=== PATIENT | male | born 1965 | race Caucasian/White ===

== ENCOUNTER 2021-07-23 18:10 | Emergency (ER) | payer OTHER ==
[~2021-07-23] VITALS: Ht 177.8 cm; Wt 106.6 kg
[~2021-07-23 18:10] MED LIST: DIAZ5 PO; OXYACE5T PO
[2021-07-23] MEDS ORDERED: Prednisone20 MG PO (21:01)
[2021-07-23] MEDS ORDERED: KETO10 PO (21:01)
== END 2021-07-23 21:11 | disposition home or self-care (01) ==
LOC: ER 18:10
DX: M51.36 Other intervertebral disc degeneration, lumbar region (principal); G62.9 Polyneuropathy, unspecified; Z79.899 Other long term (current) drug therapy
CPT/HCPCS: 74176; 96372; 99283-25; A9270; J1885; J7512

== ENCOUNTER 2022-10-20 21:33 | Emergency (ER) | payer OTHER ==
[~2022-10-20] VITALS: Ht 177.8 cm; Wt 102.1 kg
[~2022-10-20 21:33] MED LIST changes: +KETO10 PO; +Prednisone20 MG PO
[2022-10-21 00:30] LABS: Source, Urine Clean Catch
[2022-10-21 00:42] LABS: BASOPHILS ABSOLUTE AUTO 0.02 K/mm3 (0.00-0.23); BASOPHILS PERCENT AUTO 0 % (0-2); EOSINOPHILS ABSOLUTE AUTO 0.04 K/mm3 (0.00-0.68); EOSINOPHILS PERCENT AUTO 0 % (0-6); Hematocrit 44.2 % (37.0-53.0); Hemoglobin 15.4 g/dL (13.5-17.5); IMMATURE GRAN ABSOLUTE AUTO 0.05 K/mm3 (0.00-0.10); IMMATURE GRAN PERCENT AUTO 1 % (0-1); LYMPHOCYTES ABSOLUTE AUTO 0.74 K/mm3 (0.84-5.20); LYMPHOCYTES PERCENT AUTO 7 % (21-46); MONOCYTES ABSOLUTE AUTO 0.82 K/mm3 (0.16-1.47); MONOCYTES PERCENT AUTO 8 % (4-13); Mean Corpuscular HGB 30.1 pg (26.0-34.0); Mean Corpuscular HGB Conc 34.8 g/dL (31.5-36.5); Mean Corpuscular Volume 86 fL (80-100); Mean Platelet Volume 8.5 fL (9.1-12.4); NEUTROPHILS ABSOLUTE AUTO 9.13 K/mm3 (1.96-9.15); NEUTROPHILS PERCENT AUTO 84 % (41-73); Platelet Count 195 K/mm3 (150-400); RDW Coefficient Variation 12.8 % (11.7-14.2); RDW Standard Deviation 40.2 fL (35.1-46.3); Red Blood Cell Count 5.12 M/mm3 (4.30-5.90)
[2022-10-21 01:15] LABS: Albumin, Blood 3.6 g/dL (3.4-5.0); Bun/Creatinine Ratio 24.5 (12.0-20.0); Calcium, Blood 8.7 mg/dL (8.5-10.1); Creatinine, Blood 1.43 mg/dL (0.60-1.20); Globulin, Blood 3.6 g/dL (2.2-4.0); Potassium, Blood 4.2 mmol/L (3.5-5.5); Total Protein, Blood 7.2 g/dL (6.4-8.2)
[2022-10-21 02:13] LABS: Bilirubin, Urine Neg (Neg); Blood, Urine 4+ (Neg); Glucose Qualitative, Urine Neg (Neg); Ketones, Urine 1+ (Neg); Leukocyte Esterase, Urine Neg (Neg); Nitrite, Urine Neg (Neg); Protein, Urine 1+ (Neg); Urobilinogen, Urine 1+ (Normal)
[2022-10-21 02:18] LABS: Appearance, Urine Clear (Clear); Color, Urine Yellow (P-Yellow)
[2022-10-21 02:19] LABS: Amorphous Light (0-Heavy); Bacteria Rare /hpf; Mucus Light (0-Heavy); Squamous Epithelial Cells Few /hpf (Few); White Blood Cells, Urine 0-2 /hpf (0-5)
[2022-10-21 02:30] VITALS: BP 113/85
[2022-10-21] MEDS ORDERED: OXAYDO5 M1 PO (02:37)
[2022-10-22] MEDS ORDERED: KETO10 PO (08:18)
== END 2022-10-21 02:45 | disposition home or self-care (01) ==
LOC: ER 21:33
PROVIDERS: Student in an Organized Health Care Education/Training Program
DX: R10.9 Unspecified abdominal pain (principal); R31.9 Hematuria, unspecified; Z79.52 Long term (current) use of systemic steroids
CPT/HCPCS: 80053; 81001; 85025; 96361; 96374; 99283-25; A9270; J1885; J7030

== ENCOUNTER 2023-01-31 11:26 | Day surgery (SDC) | payer OTHER ==
[~2023-01-31] VITALS: Ht 177.8 cm; Wt 101.8 kg
[~2023-01-31 11:26] MED LIST changes: +DOCU100; +OXAYDO5 M1 PO
[2023-01-31] MEDS ORDERED: CENTRUM SILVER1 EAC2 (11:41)
[2023-01-31 12:41] VITALS: BP 111/82
== END 2023-01-31 12:45 | disposition home or self-care (01) ==
LOC: ORSCSDS 11:26
PROVIDERS: Internal Medicine Gastroenterology
PROC: 0DJD8ZZ Inspection of Lower Intestinal Tract, Via Natural or Artificial Opening Endoscopic (ICD-10-PCS; principal; 2023-01-31 13:30)
DX: K59.00 Constipation, unspecified (principal); K57.30 Diverticulosis of large intestine without perforation or abscess without bleeding; K21.9 Gastro-esophageal reflux disease without esophagitis; R10.9 Unspecified abdominal pain
CPT/HCPCS: J2704; J7120

== ENCOUNTER 2024-02-13 17:24 | Emergency (ER) | payer OTHER ==
[~2024-02-13] VITALS: Ht 177.8 cm; Wt 106.6 kg
[~2024-02-13 17:24] MED LIST changes: +CENTRUM SILVER1 EAC2
[2024-02-13 17:48] LABS: BASOPHILS ABSOLUTE AUTO 0.02 K/mm3 (0.00-0.23); BASOPHILS PERCENT AUTO 0 % (0-2); EOSINOPHILS ABSOLUTE AUTO 0.04 K/mm3 (0.00-0.68); EOSINOPHILS PERCENT AUTO 0 % (0-6); Hematocrit 45.7 % (37.0-53.0); Hemoglobin 16.3 g/dL (13.5-17.5); IMMATURE GRAN ABSOLUTE AUTO 0.05 K/mm3 (0.00-0.10); IMMATURE GRAN PERCENT AUTO 0 % (0-1); LYMPHOCYTES ABSOLUTE AUTO 1.41 K/mm3 (0.84-5.20); LYMPHOCYTES PERCENT AUTO 12 % (21-46); MONOCYTES ABSOLUTE AUTO 0.56 K/mm3 (0.16-1.47); MONOCYTES PERCENT AUTO 5 % (4-13); Mean Corpuscular HGB Conc 35.7 g/dL (31.5-36.5); Mean Corpuscular Volume 87 fL (80-100); Mean Platelet Volume 8.6 fL (9.1-12.4); NEUTROPHILS ABSOLUTE AUTO 10.02 K/mm3 (1.96-9.15); NEUTROPHILS PERCENT AUTO 83 % (41-73); Platelet Count 220 K/mm3 (150-400); RDW Coefficient Variation 12.7 % (11.7-14.2); RDW Standard Deviation 40.6 fL (35.1-46.3); Red Blood Cell Count 5.25 M/mm3 (4.30-5.90)
[2024-02-13 18:11] LABS: Albumin, Blood 3.8 g/dL (3.4-5.0); Bilirubin, Total 0.6 mg/dL (0.1-1.0); Calcium, Blood 8.9 mg/dL (8.5-10.1); Creatinine, Blood 1.03 mg/dL (0.60-1.20); Globulin, Blood 3.7 g/dL (2.2-4.0); Potassium, Blood 4.3 mmol/L (3.5-5.5); Total Protein, Blood 7.5 g/dL (6.4-8.2)
[2024-02-13] MEDS ORDERED: TAMS.4ER PO (18:46)
[2024-02-13] MEDS ORDERED: OMEP20ER PO (18:46)
[2024-02-13] MEDS ORDERED: Lactated Ringer's 1,000 ML IV ONE (19:00)
[2024-02-13 19:51] LABS: Influenza A, PCR NEGATIVE (NEGATIVE); Influenza B, PCR NEGATIVE (NEGATIVE); Resp Syncytial Virus, PCR NEGATIVE (NEGATIVE); SARS-Cov-2 (COVID-19) PCR, MMC NEGATIVE (NEGATIVE)
[2024-02-13 20:00] VITALS: BP 131/89
[2024-02-13] MEDS ORDERED: ONDA4ODT MM (20:01)
== END 2024-02-13 20:11 | disposition home or self-care (01) ==
LOC: ER 17:24
PROVIDERS: Emergency Medicine; Student in an Organized Health Care Education/Training Program
DX: R55 Syncope and collapse (principal); R11.0 Nausea
CPT/HCPCS: 0241U; 71046; 80053; 83690; 84484; 85025; 93005; 93010; 96360; 99284-25; J7120